=== PATIENT | male | born 1950 | race Caucasian/White ===

== ENCOUNTER 2018-04-23 09:29 | Outpatient (CLI) | payer MEDICARE, BC, SELFPAY ==
[2018-04-23 11:08] LABS: Cholesterol 186 mg/dL (50-200); HDL Cholesterol 57 mg/dL (40-60); LDL CHOLESTEROL 121 mg/dL (<100); Triglyceride 67 mg/dL (30-150)
[2018-04-24 10:10] LABS: PSA, Screening 2.5 ng/ml (0-4.5)
== END 2018-04-23 09:49 ==
PROVIDERS: PCP Emergency Medicine; Visit Provider Emergency Medicine
DX: I10 Essential (primary) hypertension (principal); Z12.5 Encounter for screening for malignant neoplasm of prostate; N40.0 Benign prostatic hyperplasia without lower urinary tract symptoms
CPT/HCPCS: 36415; 80061; 83721; 84153

== ENCOUNTER 2018-07-14 01:49 | Outpatient (CLI) | payer MEDICARE, BC, SELFPAY ==
[2018-07-14 13:32] LABS: Cholesterol 138 mg/dL (50-200); HDL Cholesterol 49 mg/dL (40-60); LDL CHOLESTEROL 81 mg/dL (<100); Triglyceride 50 mg/dL (30-150)
== END 2018-07-14 02:09 ==
PROVIDERS: PCP Emergency Medicine; Visit Provider Emergency Medicine
DX: E78.5 Hyperlipidemia, unspecified (principal)
CPT/HCPCS: 36415; 80061; 83721

== ENCOUNTER 2018-09-01 08:39 | Outpatient (CLI) | payer MEDICARE, BC, SELFPAY ==
[2018-09-01 13:21] LABS: ALT 20 U/L (12-78); AST 16 U/L (15-37); Albumin 3.5 g/dL (3.4-5.0); Alkaline Phosphatase 60 U/L (46-116); Bilirubin, Direct 0.16 mg/dL (0.00-0.20); Bilirubin, Total 0.8 mg/dL (0.2-1.0); C-Reactive Protein 0.19 mg/dL (0.0-0.3); Total Protein 6.8 g/dL (6.4-8.2)
[2018-09-01 13:26] LABS: Cholesterol 197 mg/dL (50-200); HDL Cholesterol 55 mg/dL (40-60); LDL CHOLESTEROL 134 mg/dL (<100); Triglyceride 30 mg/dL (30-150)
[2018-09-02 15:04] LABS: ANA Interpretation Positive (NEGAT); ANA Titer Pattern 1:320 Speckled
== END 2018-09-01 08:59 ==
PROVIDERS: PCP Emergency Medicine; Visit Provider Emergency Medicine
DX: R21 Rash and other nonspecific skin eruption (principal); M25.50 Pain in unspecified joint
CPT/HCPCS: 36415; 80061; 80076; 83721; 86038; 86140

== ENCOUNTER 2019-03-19 01:29 | Outpatient (CLI) | payer MEDICARE, BC, SELFPAY ==
[2019-03-19 13:45] LABS: Calculated LDL 84 mg/dL; Cholesterol 139 mg/dL (50-200); HDL Cholesterol 48 mg/dL (40-60); Triglyceride 37 mg/dL (30-150)
== END 2019-03-19 01:49 ==
PROVIDERS: PCP Emergency Medicine; Visit Provider Emergency Medicine
DX: E78.5 Hyperlipidemia, unspecified (principal)
CPT/HCPCS: 36415; 80061; 83721

== ENCOUNTER 2019-09-25 16:05 | Outpatient (REF) | payer MEDICARE, BC, SELFPAY ==
[2019-09-25 18:11] LABS: Bilirubin Negative (Negative); Blood Negative (Negative); Clarity Cloudy (Clear); Glucose Negative (Negative); Ketones Negative (Negative); Leukocyte Esterase Negative (Negative); Nitrite Negative (Negative); Urobilinogen 0.2 EU/dL (Up TO 0.2)
== END 2019-09-25 16:25 ==
LOC: LBN 16:05
PROVIDERS: PCP Emergency Medicine; Visit Provider Emergency Medicine
DX: R31.9 Hematuria, unspecified (principal)
CPT/HCPCS: 81003

== ENCOUNTER 2020-03-02 00:48 | Outpatient (CLI) | payer MEDICARE, BC, SELFPAY ==
--- NOTE | 2020-03-02 10:45 | DI.RAD_ITS ---
EXAM: XR HAND RT COMPLETE CLINICAL HISTORY: swollen 3rd MPJ M19.041 OSTEOARTHRITIS RT HAND TECHNIQUE: COMPARISON: No exams were available for comparison FINDINGS: Three views were obtained. The cartilaginous joint spaces are fairly well maintained throughout. No significant bony or soft tissue abnormality seen. Bones are normally mineralized. IMPRESSION: Negative examination of the hand.
== END 2020-03-02 01:08 ==
PROVIDERS: PCP Emergency Medicine; Visit Provider Emergency Medicine
DX: M25.541 Pain in joints of right hand (principal); M19.041 Primary osteoarthritis, right hand
CPT/HCPCS: 73130

== ENCOUNTER 2020-03-02 01:15 | Outpatient (CLI) | payer MEDICARE, BC, SELFPAY ==
[2020-03-02 12:21] LABS: Abs Immature Grans 0.01 k/cumm (0.0-0.09); Absolute Basophil Count 0.05 k/cumm (0.0-0.2); Absolute Eosinophil Count 0.29 k/cumm (0.0-0.7); Absolute Lymphocyte Count 1.07 k/cumm (1.2-3.4); Absolute Monocyte Count 0.42 k/cumm (0.11-0.7); Absolute Neutrophil Count 4.21 k/cumm (1.2-6.7); Basophils % 0.8; Eosinophils % 4.8; HCT 45.1 % (40.0-50.0); HGB 15.3 g/dL (13.5-17.5); Immature Grans % 0.2 %; Lymphocytes % 17.7; Mean Corp. HGB Concentration 33.9 g/dL (32.0-36.0); Mean Corpuscular Hemoglobin 31.6 pg (27.0-33.0); Mean Corpuscular Volume 93.2 fL (80-95); Mean Platelet Volume 9.9 fL (8.0-11.0); Monocytes % 6.9; Neutrophils % 69.6; Platelet Count 279 x1000/uL (130-400); RBC 4.84 m/cumm (4.50-6.00); RBC Distribution Width 13.2 % (11.8-14.1); White Blood Cell Count 6.05 k/cumm (4.4-10.8)
[2020-03-02 13:15] LABS: Anion Gap 7.9 mmol/L (3-11); BUN 21 mg/dL (7-18); CO2 27.1 mmol/L (21.0-32.0); CREATININE 0.96 mg/dL (0.70-1.30); Calcium 8.9 mg/dL (8.5-10.1); Calculated LDL 87 mg/dL (<100); Chloride 106 mmol/L (98-107); Cholesterol 150 mg/dL (<200); Glucose 106 mg/dL (74-106); HDL Cholesterol 52 mg/dL (40-60); Potassium 4.3 mmol/L (3.5-5.1); Sodium 141 mmol/L (136-145); Triglyceride 55 mg/dL (<150)
[2020-03-02 13:27] LABS: C-Reactive Protein 0.09 mg/dL (0.0-0.3); Uric Acid 4.8 mg/dL (3.5-7.2)
[2020-03-02 14:07] LABS: ESR 4 mm/hr (1-20)
[2020-03-02 16:30] LABS: Rheumatoid Factor <8.6 IU/mL (<12.0)
[2020-03-03 09:12] LABS: PSA, Screening 3.4 ng/mL (0.0-6.5)
[2020-03-03 14:04] LABS: Lyme Ab w Rflx to Lyme Confirm Negative (Negative)
== END 2020-03-02 01:35 ==
PROVIDERS: PCP Emergency Medicine; Visit Provider Emergency Medicine
DX: I10 Essential (primary) hypertension (principal); E78.5 Hyperlipidemia, unspecified; Z12.5 Encounter for screening for malignant neoplasm of prostate; M19.041 Primary osteoarthritis, right hand
CPT/HCPCS: 36415; 80048; 80061; 84153; 85652; 73130; 84550; 85025; 86140; 86431; 86618

== ENCOUNTER → 2020-04-14 13:12 | Outpatient (BNVA) | payer MEDICARE, BC, SELFPAY | PROVIDERS: PCP Emergency Medicine; Referring Provider Emergency Medicine; Visit Provider Student in an Organized Health Care Education/Training Program | DX: M79.641 Pain in right hand (principal); I10 Essential (primary) hypertension | CPT/HCPCS: 99203 ==

== ENCOUNTER → 2021-01-27 10:12 | Outpatient (BNVA) | payer MEDICARE, BC, SELFPAY | PROVIDERS: PCP Emergency Medicine; Referring Provider Emergency Medicine; Visit Provider Physical Therapy Assistant | DX: Z12.11 Encounter for screening for malignant neoplasm of colon (principal); Z86.010 Personal history of colon polyps ==

== ENCOUNTER 2021-02-10 09:12 | Day surgery (SDC) | payer MEDICARE, BC, SELFPAY ==
[2021-02-10 09:26] VITALS: BP 142/74; PULSE 64; RESP 16; TEMP 36.3; O2SAT 99
[2021-02-10] MEDS: Lactated Ringers 1,000 ML 80 ML IV (09:49)
[2021-02-10 10:11] VITALS: BMI 23.5
--- NOTE | 2021-02-10 10:11 | W.ANESPRE ---
General Info Date of Service Date Performed: 02/10/21 Height: 5 ft 7 in Weight: 68.1 kg Body Mass Index (BMI): 23.5 Surgical Procedure: Operation Date: 02/10/21 09:50 Proposed Procedures Side Surgeon alex Looney, Meds Allergies and Home Medications Allergies Allergy/AdvReac Type Severity Reaction Status Date / Time latex Allergy Intermediate Skin Rash Verified 02/10/21 09:40 simvastatin [From Zocor] AdvReac myalgias Verified 02/10/21 09:40 Home Medication Medication Instructions Recorded aspirin [Ecotrin] 1 tab PO DAILY tab-cap 12/23/12 vitamin E 1 cap PO DAILY 12/23/12 nitroglycerin 0.4 mg sublingual 0.4 mg SL ONCE #20 tab 04/23/18 tablet sildenafil 100 mg tablet 100 mg PO ONCE PRN 04/23/18 lisinopril 5 mg tablet 5 mg PO DAILY #90 tab 10/05/20 metoprolol succinate 50 mg 25 mg PO DAILY #90 tab 10/05/20 tablet,extended release 24 hr rosuvastatin 10 mg tablet 10 mg PO DAILY #90 tab 10/05/20 bisacodyl 5 mg tablet,delayed 5 mg PO ONCE #4 tab 01/27/21 release polyethylene glycol 3350 17 238 g PO ONCE #238 g 01/27/21 gram/dose oral powder Current Visit Medications: Current Medications Generic Name Dose Route Start Last Admin Trade Name Freq PRN Reason Stop Dose Admin Hyoscyamine Sulfate 0.125 mg 02/09/21 14:23 Hyoscyamine 0.125 Mg Sl/Oral/Chew SL DIRECTED PRN Ringer's Solution 1,000 mls @ 80 mls/hr 02/10/21 06:00 02/10/21 09:49 IV 03/11/21 23:59 80 mls/hr INFUSION KEATON Administration IV Miscellaneous Supplies 1 each 02/10/21 06:00 Iv Access IV 03/11/21 23:59 DIRECTED KEATON Ondansetron HCl 4 mg 02/09/21 14:23 Ondansetron 4 Mg/2 Ml Vial IVP Q4H PRN PRN Nausea / Vomiting Sodium Chloride 0 ml 02/10/21 06:00 Normal Saline Flush 10 Ml Syr IV 03/11/21 23:59 PRN PRN Sodium Chloride 0 ml 02/10/21 06:00 Normal Saline 10 Ml Vial IJ 03/11/21 23:59 DIRECTED PRN Sterile Water 0 ml 02/10/21 06:00 Water,Injection,Sterile 10 Ml Vial IJ 03/11/21 23:59 DIRECTED PRN PFSH Active Problems Active Problems: Problem Status Onset Code Chronic pruritic rash in adult L29.8 Other dental procedure status Z98.818 Pain in right hand M79.641 Basal cell carcinoma (BCC) C44.91 Tubular adenoma of colon 05/16/16 D12.6 Tinnitus H93.19 Malignant neoplasm of skin C44.90 Hypertension I10 Hyperlipidemia E78.5 Atherosclerosis of [place] coronary artery I25.10 Medical History Medical History Atherosclerosis of [place] coronary artery Atherosclerosis of [place] coronary artery with angina pectoris Basal cell carcinoma (BCC) History of VT (myocardial infarction) HTN (hypertension) Hyperlipidemia Hyperlipidemia Hypertension Malignant neoplasm of skin basal cell left arm Tinnitus Tubular adenoma of colon (05/16/16) Surgical History Surgical History Colonoscopy - IV Sedation (05/16/16) Colonoscopy - MAC 2004;NEG History of cardiac cath Tooth extraction DENTURES Tobacco Smoking/Tobacco Use Status: Never Passive smoking exposure: No Second hand exposure: No Alcohol Alcohol Intake: current Alcohol intake frequency: a few times a month Alcohol type: beer and wine Substance Use Substance use: Occasionally Substance use type: marijuana Details: smoked marijuana 02/10/21 Vital Signs and Lab Results Vital Signs Most Recent Vital Signs in EMR: Most Recent Vital Signs Temp Pulse Resp BP Pulse Ox 36.3 C L 64 16 142/74 H 99 02/10/21 09:26 02/10/21 09:26 02/10/21 09:26 02/10/21 09:26 02/10/21 09:26 Lab Results Blood Type / Crossmatch: No Data to Display Complete Blood Count: No Data to Display Complete Metabolic Panel: No Data to Display Liver Function Panel: No Data to Display Coagulation Panel: No Data to Display Cardiac Panel: No Data to Display Arterial Blood Gas: No Data to Display Venous Blood Gas: No Data to Display Pancreas Panel: No Data to Display Thyroid Panel: No Data to Display Infectious Disease: No Data to Display Blood Cultures: No Data to Display Toxicology Panel: No Data to Display Imaging and Studies Imaging and Studies Stress Test Summary: 09/2008: Normal Cardiac Catheterization Summary: 1996: VT, Clean Coronaries Anesthesia Assessment and Plan Anesthesia History Personal History: No History of Anesthesia Complications Family History: No Family History of Anesthesia Complications Exercise Tolerance Exercise Tolerance: Metabolic Equivalents>4 Pertinent Negatives Pertinent Negatives: No Symptoms of GERD Cardiac & Pulmonary Exam Cardiac Exam: Normal S1/S2 Heart Sounds Pulmonary Exam: Clear Bilateral Breath Sounds Airway Exam Known Difficult Airway: No Mallampati Class: 2 Mouth Opening: Normal (> 3cm) Thyromental Distance: Greater than 3 cm Neck Range of Motion: Full ROM Neck Circumference: Normal Teeth Condition: Removable Dentures/Plates Upper and Removable Dentures/Plates Lower ASA Classification ASA Score: ASA 3 Emergency Case?: No NPO Status NPO Status: NPO Clears >2 hours, Solids >8 hours Anesthesia Plan Resuscitation Status: Full Code Anesthesia Technique: General Anesthesia Airway Planned: Natural Airway Monitors Used: Standard Monitors
--- NOTE | 2021-02-10 10:32 | W.COLOREPORT ---
Date of service: 02/10/21 Time of Service: 10:32 Colonoscopy Report Date of procedure: 02/10/21 Pre-op diagnosis general: A. polyps Post-op diagnosis procedure note: other (normal) Surgeon: Susi Looney Anesthesia Type: General:No Airway Disposition: same day Prep: Miralax/Dulcolax Retraction Time: 10 Procedure Description: After informed consent was obtained the patient was taken to the procedure room and placed in a left decubitous position. Monitors were applied and a time out was done. The patients name, date of , procedure, allergies to medications and metal in their body was reviewed. The patient was then sedated. Once sedated and comfortable a rectal exam was done. External exam was normal. Internal exam revealed a normal sphincter tone and no palpable masses. The scope was then introduced and retrofelexed. No internal hemorrhoids were identified. The scope was then advanced to the cecum w/out difficulty. The TI and appendiceal orifice were identified. The prep was adequate. The scope was then slowly retracted over 10 minutes back into the rectum. There are no polyps, AVMs, or diverticula apparent today. The mucosa appears pink and healthy. The scope was removed and the patient was woken up and taken back to Same day surgery in stable condition. The patient tolerated the procedure well and there were no immediate complications. Follow up: The patient does not require any further screening colonoscopies unless, they develop changes in bowel habits or other new gastrointestinal complaints.
--- NOTE | 2021-02-10 10:33 | PDOC.DSDIS_ITS ---
Discharge Plan Disposition Patient Disposition: HOME Condition: Good Discharge Details Reason For Visit: colon scope Attending Provider: Susi Looney Primary Care Provider: Tj Price Home Meds and New Rx's Prescriptions: Continued lisinopril 5 mg tablet 5 mg PO DAILY Qty: 90 RF: 4 metoprolol succinate 50 mg tablet extended release 24 hr 25 mg PO DAILY Qty: 90 RF: 3 rosuvastatin [Crestor] 10 mg tablet 10 mg PO DAILY Qty: 90 RF: 4 nitroglycerin 0.4 mg tablet, sublingual 0.4 mg SL ONCE Qty: 20 RF: 0 aspirin [Ecotrin Low Strength] 81 MG tablet,delayed release (DR/EC) 1 tab PO DAILY RF: 0 vitamin E 400 UNIT capsule 1 cap PO DAILY RF: 0 sildenafil [Viagra] 100 mg tablet 100 mg PO ONCE PRNRF: 0 Discontinued polyethylene glycol 3350 17 gram/dose powder 238 g PO ONCE Qty: 238 RF: 0 bisacodyl [Dulcolax (bisacodyl)] 5 mg tablet,delayed release (DR/EC) 5 mg PO ONCE Qty: 4 RF: 0 Discharge Instructions Additional Instructions: DSU Colonoscopy Post- Op Instructions Instructions for Everyone who is given Anesthesia: For your safety, please do the following for the next twenty-four (24) hours: *Do Not operate a motor vehicle (car, truck, motorcycle, etc.) *Do Not drink alcoholic beverages or use any recreational drugs for the first 24 hours or while taking pain medications. The medications in your body may have a reaction that can be dangerous. *Do Not make any important decisions or sign any important papers. Findings:Normal Follow up:Does not require any further colonscopy's, unless you note: Unexplained weight loss, change in your bowel habits that persist for more than 2 weeks, or persistent rectal bleeding. 1. No lifting over 20 pounds or strenuous activity for the first 24 hours after your procedure. After 24 hours there are no restrictions on your activity but you may feel fatigued for a few days. 2. After you arrive home you may have a light meal and return to your normal diet as you can tolerate it without feeling sick to your stomach. 3. You may have a bloated, gaseous feeling in your belly (abdomen) after a colonoscopy. Passing gas and belching will help. Walking or lying down on your left side with your knees flexed may relieve the discomfort. Call the office at [phone] (Office) or [phone] (Hospital) right away if you notice any of the following: a.Vomiting of blood or ?coffee ground stools?. b.Rectal bleeding 1Tbsp, blood clots or continuous bleeding. c.Severe belly (abdominal) pain. d.A hard distended belly (abdomen) and an inability to pass gas. 4. Please don?t expect to have a normal BM (bowel movement) for 2-3 days after your procedure. 5. If there are questions regarding the findings of your procedure, please contact your doctor 6. If you are unable to contact your doctor with a problem, contact the hospital at [phone]. 7. Continue all your regular medications unless directed otherwise. I understand the above instructions and have no questions. Signature of Patient or Adult Escort Name of Responsible Adult Escort Signature of Nurse Date/Time Activity:: see above Diet:: see above Discharge Orders Discharge Orders: Discharge Order (Routine); Ordered 02/09/21 Ordered By: Susi Looney DS: Diagnosis Discharge Diagnosis (1) Adenomatous colon polyp: Status: Acute
[2021-02-10 11:05] VITALS: BP 119/71; PULSE 70; RESP 15; TEMP 36.6; O2SAT 97
[2021-02-10 11:35] VITALS: BP 137/71; PULSE 59; RESP 16; TEMP 36.1; O2SAT 98
--- NOTE | 2021-02-10 11:40 | W.ANESPOSTOP ---
Postoperative Evaluation Date, Time and Location Date Performed: 02/10/21 Time Performed: 11:40 Patient Location: Day Surgery Unit Vital Signs Most Recent Imported Vital Signs: Most Recent Vital Signs Temp Pulse Resp BP Pulse Ox 36.6 C 70 15 119/71 97 02/10/21 11:05 02/10/21 11:05 02/10/21 11:05 02/10/21 11:05 02/10/21 11:05 Pain Score Most Recent Pain Score: Most Recent Pain Score Pain Level 0 02/10/21 11:05 Assessment Mental Status: Awake (Alert & Oriented to Patient Baseline) Airway and Respiratory Function: Patent airway with normal (patient baseline) respiratory exam Cardiovascular Function: Hemodynamically Stable Hydration Status: Adequately Hydrated Nausea & Vomiting: No Nausea or Vomiting Pain: Pt. Denies Any Pain Peripheral Nerve Block: Patient did not receive a nerve block
== END 2021-02-10 09:13 | disposition home or self-care (01) ==
PROVIDERS: PCP Emergency Medicine; Visit Provider Surgery
PROC: 0DJD8ZZ Inspection of Lower Intestinal Tract, Via Natural or Artificial Opening Endoscopic (ICD-10-PCS; CPT 45378; principal; 2021-02-10 09:45)
DX: Z12.11 Encounter for screening for malignant neoplasm of colon (principal); Z86.010 Personal history of colon polyps; I25.10 Atherosclerotic heart disease of native coronary artery without angina pectoris; I10 Essential (primary) hypertension
CPT/HCPCS: G0105

== ENCOUNTER 2021-10-20 03:57 | Outpatient (CLI) | payer MEDICARE, SELFPAY ==
[2021-10-20 11:27] LABS: Calculated LDL 61 mg/dL (<100); Cholesterol 122 mg/dL (<200); HDL Cholesterol 54 mg/dL (40-60); Triglyceride 37 mg/dL (<150)
== END 2021-10-20 03:58 | disposition home or self-care (01) ==
LOC: LBO 03:57
PROVIDERS: PCP Family Medicine; Visit Provider Emergency Medicine
DX: N40.0 Benign prostatic hyperplasia without lower urinary tract symptoms (principal); I25.10 Atherosclerotic heart disease of native coronary artery without angina pectoris
CPT/HCPCS: 36415; 80061; 84153

== ENCOUNTER 2022-04-24 08:09 | Outpatient (CLI) | payer MEDICARE, SELFPAY ==
[2022-04-24 14:27] LABS: Calculated LDL 55 mg/dL (<100); Cholesterol 112 mg/dL (<200); HDL Cholesterol 50 mg/dL (40-60); Triglyceride 38 mg/dL (<150)
== END 2022-04-24 08:10 | disposition home or self-care (01) ==
LOC: LOS 08:09
PROVIDERS: Visit Provider Nurse Practitioner Family
DX: I25.10 Atherosclerotic heart disease of native coronary artery without angina pectoris (principal)
CPT/HCPCS: 36415; 80061

== ENCOUNTER → 2022-10-19 10:34 | Outpatient (BNVA) | payer MEDICARE, SELFPAY | PROVIDERS: PCP Nurse Practitioner Family; Referring Provider Family Medicine; Visit Provider Urology | DX: N42.9 Disorder of prostate, unspecified (principal); N40.1 Benign prostatic hyperplasia with lower urinary tract symptoms; R39.89 Other symptoms and signs involving the genitourinary system; R97.20 Elevated prostate specific antigen [PSA] | CPT/HCPCS: 51798; 99213 ==

== ENCOUNTER 2022-10-24 02:43 | Outpatient (CLI) | payer MEDICARE, SELFPAY ==
[2022-10-24 12:54] LABS: ALT 26 U/L (16-63); AST 19 U/L (15-37); Albumin 3.9 g/dL (3.4-5.0); Alkaline Phosphatase 71 U/L (46-116); BUN 17 mg/dL (7-18); Bilirubin, Total 0.7 mg/dL (0.2-1.0); CREATININE 0.9 mg/dL (0.70-1.30); Calcium 9.1 mg/dL (8.5-10.1); Calculated LDL 55 mg/dL (<100); Chloride 105 mmol/L (98-107); Cholesterol 120 mg/dL (<200); Estimated GFR 89.62 (mL/min/1.73m2); Glucose 89 mg/dL (74-106); HDL Cholesterol 59 mg/dL (40-60); Potassium 4.1 mmol/L (3.5-5.1); Sodium 142 mmol/L (136-145); Triglyceride 34 mg/dL (<150)
[2022-10-24 13:03] LABS: Anion Gap 6.5 mmol/L (3-11); CO2 30.5 mmol/L (21.0-32.0)
[2022-10-26 09:38] LABS: Lipoprotein (a) 154 nmol/L (<75)
== END 2022-10-24 02:44 | disposition home or self-care (01) ==
LOC: LOS 02:43
PROVIDERS: PCP Nurse Practitioner Family; Visit Provider Nurse Practitioner Family
DX: E78.01 Familial hypercholesterolemia; E78.5 Hyperlipidemia, unspecified; Z51.81 Encounter for therapeutic drug level monitoring; N40.1 Benign prostatic hyperplasia with lower urinary tract symptoms
CPT/HCPCS: 36415; 80053; 80061; 83695; 84153

== ENCOUNTER 2022-11-01 00:59 | Outpatient (CLI) | payer MEDICARE, SELFPAY ==
--- NOTE | 2022-11-01 07:15 | DI.US_ITS ---
Exam(s) US SOFT TISSUE HEAD OR NECK EXAM: US SOFT TISSUE HEAD OR NECK CLINICAL HISTORY: lower neck mass,r22.1. TECHNIQUE: Ultrasound was performed using standard protocol. COMPARISON: No exams were available for comparison FINDINGS: Sonographic assessment utilizing grayscale and color Doppler imaging was performed and targeted to th e area of clinical concern. The palpable abnormality corresponds to a circumscribed ovoid hypoechoic nodule in the subcutaneous f at the at the region of the sternum. There is no blood flow. This may represent a sebaceous cyst. It measures 12 x 6 x 11 millimeters. IMPRESSION: Benign-appearing subcutaneous lesion corresponding to palpable abnormality. DATA REPOSITORY:
== END 2022-11-01 01:19 ==
LOC: DI 01:00
PROVIDERS: PCP Nurse Practitioner Family; Visit Provider Nurse Practitioner Family
DX: R22.1 Localized swelling, mass and lump, neck (principal); L72.3 Sebaceous cyst
CPT/HCPCS: 76536

== ENCOUNTER → 2022-11-12 08:52 | Outpatient (BNVA) | payer MEDICARE, SELFPAY | PROVIDERS: PCP Nurse Practitioner Family; Referring Provider Nurse Practitioner Family; Visit Provider Surgery | DX: L72.3 Sebaceous cyst (principal) | CPT/HCPCS: 11402; 99202 ==

== ENCOUNTER → 2022-12-10 13:25 | Outpatient (BNVA) | payer MEDICARE, SELFPAY | PROVIDERS: PCP Nurse Practitioner Family; Referring Provider Nurse Practitioner Family; Visit Provider Urology | DX: R97.20 Elevated prostate specific antigen [PSA] (principal); N42.9 Disorder of prostate, unspecified | CPT/HCPCS: 99215 ==

== ENCOUNTER → 2023-01-03 10:42 | Outpatient (BNVA) | payer MEDICARE, SELFPAY | PROVIDERS: PCP Nurse Practitioner Family; Referring Provider Nurse Practitioner Family; Visit Provider Urology | DX: N42.9 Disorder of prostate, unspecified (principal) | CPT/HCPCS: NC OV ==

== ENCOUNTER → 2023-01-15 08:47 | Outpatient (BNVA) | payer MEDICARE, SELFPAY | PROVIDERS: PCP Nurse Practitioner Family; Referring Provider Nurse Practitioner Family; Visit Provider Urology | DX: C61 Malignant neoplasm of prostate (principal) | CPT/HCPCS: 76872 ==

== ENCOUNTER → 2023-01-25 10:43 | Outpatient (BNVA) | payer MEDICARE, SELFPAY | PROVIDERS: PCP Nurse Practitioner Family; Referring Provider Nurse Practitioner Family; Visit Provider Urology | DX: C61 Malignant neoplasm of prostate (principal) | CPT/HCPCS: 99215 ==

== ENCOUNTER 2023-01-30 00:46 | Outpatient (CLI) | payer MEDICARE, SELFPAY ==
--- NOTE | 2023-01-30 08:00 | DI.NM_ITS ---
Exam(s) NM BONE SCAN WHOLE BODY GRP EXAM: NM BONE SCAN WHOLE BODY GRP CLINICAL HISTORY: ? mets, prostate ca,c61. TECHNIQUE: Injected Dose: 25 mCi Tc-99m MDP Delayed Images: 2-3 hours. COMPARISON: None FINDINGS: There is no abnormal uptake in the skeleton which would suggest metastatic disease. Tiny focus of in creased uptake is noted on the right side of the lower thoracic spine at the costovertebral junction of approximately T9 or T10, most probably degenerative. Small focus of increased uptake seen in the left hand 1 of the metacarpophalangeal joints is noted. Probably degenerative. No other skeletal uptake evident. IMPRESSION: No evidence of osseous metastatic disease. DATA REPOSITORY:
== END 2023-01-30 01:06 ==
LOC: DI 00:46
PROVIDERS: PCP Nurse Practitioner Family; Visit Provider Urology
DX: C61 Malignant neoplasm of prostate (principal)
CPT/HCPCS: 78306

== ENCOUNTER 2023-02-11 01:56 | Outpatient (CLI) | payer MEDICARE, SELFPAY ==
--- NOTE | 2023-02-11 08:00 | DI.CT_ITS ---
Exam(s) CT ABDOMEN PELVIS W EXAM: CT ABDOMEN PELVIS W CLINICAL HISTORY: ? METS,PROSTATE CA,C61 TECHNIQUE: Imaging Protocol: Axial computed tomography images with coronal and sagittal reformatted images were created and reviewed CONTRAST MATERIAL: Intravenous: Omnipaque 350 Contrast volume:100 mL Oral: Yes COMPARISON: No exams were available for comparison FINDINGS: ABDOMEN: Lung Bases: There is mild dependent atelectasis in the lung bases. No pulmonary nodules are seen in the lung bases. Liver: Normal density. There are 2 hypodensities seen in the liver. They are too small for further c haracterization but likely reflect small cysts. No suspicious hepatic lesions are seen. Portal, Superior Mesenteric, and Splenic Veins: Unremarkable. Gallbladder and Biliary Tract: Gallstones are present. No biliary ductal dilatation. Pancreas: Normal density, no abnormal calcifications or inflammatory process. Spleen: Normal. Adrenals: No masses seen. Kidneys: Normal size, contour and axis. No radiodense stones or obstructive uropathy. There is a 0.8 cm round hypodensity in the right kidney which likely reflects a small cyst. No follow-up is recomme nded. Abdominal Aorta: Abdominal portion non-dilated. Atherosclerosis. Bowel: No obstruction or bowel wall thickening. Appendix is unremarkable. There is a moderate amount of stool in the colon. Peritoneal Cavity: No ascites, collection or mesenteric inflammatory response. No free air. Lymph Nodes: Within normal limits. Bones: Within normal limits for the patient's age. No sclerotic lesions are seen. Soft Tissues: There is a small fat containing umbilical hernia. PELVIS: Bladder: Symmetric distention, no gross wall thickening. Reproductive Organs: The prostate gland is enlarged and impinges upon the base of the urinary bladder . Lymph Nodes: Within normal limits. Bones: Within normal limits for the patient's age. IMPRESSION: 1. Enlarged prostate gland impinging on the base of the urinary bladder. The prostate gland is heter ogeneous with a nodular extension at the base of the bladder. 2. No evidence of abdominal or pelvic metastatic disease. RADIATION DOSE DELIVERED: 981.89mGy.cm Total DLP DATA REPOSITORY: All CT scans at this facility are submitted to the National Radiology Data Registry (NRDR) Dose Index Registry (DIR) with the [employer] ([employer]). RADIATION OPTIMIZATION: All CT scans at this facility use at least one of these dose optimization te chniques: automated exposure control; mA and/or kV adjustment per patient size (includes targeted exa ms where dose is matched to clinical indication); or iterative reconstruction.
[2023-02-11] MEDS: Barium Sulfate 2% W/V-Berry Smoothie 450 ML BTL PO ×2 (09:06→09:07)
[2023-02-11 10:06] LABS: CREATININE 0.9 mg/dL (0.70-1.30); Estimated GFR 89.62 (mL/min/1.73m2)
== END 2023-02-11 02:16 ==
LOC: DI 01:56
PROVIDERS: PCP Nurse Practitioner Family; Visit Provider Urology
DX: C61 Malignant neoplasm of prostate (principal)
CPT/HCPCS: 74177; 82565

== ENCOUNTER → 2023-02-15 10:49 | Outpatient (BNVA) | payer MEDICARE, SELFPAY | PROVIDERS: PCP Nurse Practitioner Family; Referring Provider Nurse Practitioner Family; Visit Provider Urology | DX: C61 Malignant neoplasm of prostate (principal) | CPT/HCPCS: 99214 ==

== ENCOUNTER 2023-03-07 14:58 | Outpatient (CLI) | payer MEDICARE, SELFPAY ==
[2023-03-07 14:11] LABS: Abs Immature Grans 0.02 10^3/uL (0.0-0.06); Absolute Basophil Count 0.07 10^3/uL (0.0-0.2); Absolute Eosinophil Count 0.23 10^3/uL (0.0-0.7); Absolute Lymphocyte Count 1.03 10^3/uL (1.2-3.4); Absolute Monocyte Count 0.56 10^3/uL (0.1-0.8); Absolute Neutrophil Count 5.58 10^3/uL (1.2-6.7); Basophils % 0.9; Eosinophils % 3.1; HCT 46.6 % (40.0-50.0); HGB 15.5 g/dL (13.5-17.5); Immature Grans % 0.3; Lymphocytes % 13.8; MCH 31.5 pg (27.0-33.0); MCHC 33.3 % (32.0-36.0); MCV 95 fL (80-95); MPV 9.3 fL (8.0-11.0); Monocytes % 7.5; Neutrophils % 74.4; Platelet Count 280 10^3/uL (130-400); RBC 4.92 10^6/uL (4.36-5.78); RDW 12.6 % (11.8-14.1); RDW-SD 43.8 fL; WBC 7.49 10^3/uL (4.4-10.8)
[2023-03-07 14:25] LABS: ALT 35 U/L (16-63); AST 20 U/L (15-37); Albumin 4.2 g/dL (3.4-5.0); Alkaline Phosphatase 71 U/L (46-116); Anion Gap 6.5 mmol/L (3-11); BUN 19 mg/dL (7-18); Bilirubin, Total 0.6 mg/dL (0.2-1.0); CO2 28.5 mmol/L (21.0-32.0); CREATININE 0.9 mg/dL (0.70-1.30); Calcium 8.9 mg/dL (8.5-10.1); Chloride 106 mmol/L (98-107); Estimated GFR 89.62 (mL/min/1.73m2); Glucose 80 mg/dL (74-106); Potassium 4.2 mmol/L (3.5-5.1); Sodium 141 mmol/L (136-145); Total Protein 7.5 g/dL (6.4-8.2)
[2023-03-08 19:32] LABS: PSA, Ultrasensitive 15.4 ng/mL (<= 6.5)
[2023-03-13 07:20] LABS: Testosterone, Total 427 ng/dL (240-950)
== END 2023-03-07 14:59 | disposition home or self-care (01) ==
LOC: LBO 15:08
PROVIDERS: PCP Nurse Practitioner Family; Visit Provider Radiology Radiation Oncology
DX: C61 Malignant neoplasm of prostate (principal)
CPT/HCPCS: 36415; 80053; 84153; 84403; 85025

== ENCOUNTER 2023-05-03 03:05 | Outpatient (CLI) | payer MEDICARE, SELFPAY ==
[2023-05-03 11:37] LABS: Abs Immature Grans 0.06 10^3/uL (0.0-0.06); Absolute Basophil Count 0.08 10^3/uL (0.0-0.2); Absolute Eosinophil Count 0.47 10^3/uL (0.0-0.7); Absolute Monocyte Count 0.45 10^3/uL (0.1-0.8); Absolute Neutrophil Count 4.28 10^3/uL (1.2-6.7); Basophils % 1.3; Eosinophils % 7.4; HCT 43.2 % (40.0-50.0); HGB 14.5 g/dL (13.5-17.5); Immature Grans % 0.9; Lymphocytes % 15.8; MCH 31.1 pg (27.0-33.0); MCHC 33.6 % (32.0-36.0); MCV 93 fL (80-95); MPV 10.4 fL (8.0-11.0); Monocytes % 7.1; Neutrophils % 67.5; Platelet Count 265 10^3/uL (130-400); RBC 4.66 10^6/uL (4.36-5.78); RDW 12.4 % (11.8-14.1); RDW-SD 42.3 fL; WBC 6.34 10^3/uL (4.4-10.8)
[2023-05-03 12:04] LABS: ALT 60 U/L (16-63); AST 42 U/L (15-37); Albumin 3.7 g/dL (3.4-5.0); Alkaline Phosphatase 77 U/L (46-116); Anion Gap 3.8 mmol/L (3-11); BUN 19 mg/dL (7-18); Bilirubin, Total 0.3 mg/dL (0.2-1.0); CO2 30.2 mmol/L (21.0-32.0); CREATININE 1.1 mg/dL (0.70-1.30); Calcium 9.5 mg/dL (8.5-10.1); Chloride 105 mmol/L (98-107); Estimated GFR 70.44 (mL/min/1.73m2); Glucose 97 mg/dL (74-106); Potassium 4.7 mmol/L (3.5-5.1); Sodium 139 mmol/L (136-145); TSH (W/Ref FT4) 3.15 uIU/mL (0.36-3.74); Total Protein 6.8 g/dL (6.4-8.2)
== END 2023-05-03 03:06 | disposition home or self-care (01) ==
PROVIDERS: Internal Medicine Medical Oncology; PCP Nurse Practitioner Family; Visit Provider Internal Medicine
DX: C61 Malignant neoplasm of prostate (principal); Z79.899 Other long term (current) drug therapy
CPT/HCPCS: 36415; 80053; 84443; 85025

== ENCOUNTER 2023-07-08 04:39 | Outpatient (CLI) | payer MEDICARE, SELFPAY ==
[2023-07-08 14:52] LABS: Abs Immature Grans 0.06 10^3/uL (0.0-0.06); Absolute Basophil Count 0.03 10^3/uL (0.0-0.2); Absolute Eosinophil Count 0.63 10^3/uL (0.0-0.7); Absolute Lymphocyte Count 0.26 10^3/uL (1.2-3.4); Absolute Monocyte Count 0.46 10^3/uL (0.1-0.8); Absolute Neutrophil Count 3.74 10^3/uL (1.2-6.7); Basophils % 0.6; Eosinophils % 12.2; HGB 13.6 g/dL (13.5-17.5); Immature Grans % 1.2; MCH 32.5 pg (27.0-33.0); MCV 96 fL (80-95); MPV 9.5 fL (8.0-11.0); Monocytes % 8.9; Neutrophils % 72.1; Platelet Count 201 10^3/uL (130-400); RBC 4.19 10^6/uL (4.36-5.78); RDW 14.4 % (11.8-14.1); RDW-SD 49.7 fL; WBC 5.18 10^3/uL (4.4-10.8)
[2023-07-08 15:50] LABS: ALT 41 U/L (16-63); AST 23 U/L (15-37); Albumin 3.5 g/dL (3.4-5.0); Alkaline Phosphatase 63 U/L (46-116); Anion Gap 3.8 mmol/L (3-11); BUN 21 mg/dL (7-18); Bilirubin, Total 0.2 mg/dL (0.2-1.0); CO2 29.2 mmol/L (21.0-32.0); CREATININE 1.1 mg/dL (0.70-1.30); Calcium 8.9 mg/dL (8.5-10.1); Chloride 106 mmol/L (98-107); Estimated GFR 70.44 (mL/min/1.73m2); Glucose 106 mg/dL (74-106); Potassium 4.2 mmol/L (3.5-5.1); Sodium 139 mmol/L (136-145); TSH (W/Ref FT4) 1.88 uIU/mL (0.36-3.74)
[2023-07-12 15:35] LABS: PSA, Ultrasensitive 0.04 ng/mL (<= 6.5)
[2023-07-14 18:13] LABS: Testosterone, Total 12 ng/dL (240-950)
== END 2023-07-08 04:40 | disposition home or self-care (01) ==
LOC: LBO 04:40
PROVIDERS: PCP Nurse Practitioner Family; Visit Provider Radiology Radiation Oncology
DX: C61 Malignant neoplasm of prostate (principal)
CPT/HCPCS: 36415; 80053; 84153; 84403; 84443; 85025

== ENCOUNTER 2023-08-16 11:02 | Outpatient (CLI) | payer MEDICARE, SELFPAY ==
[2023-08-16 11:25] LABS: Abs Immature Grans 0.03 10^3/uL (0.0-0.06); Absolute Basophil Count 0.07 10^3/uL (0.0-0.2); Absolute Eosinophil Count 0.25 10^3/uL (0.0-0.7); Absolute Lymphocyte Count 0.22 10^3/uL (1.2-3.4); Absolute Neutrophil Count 3.67 10^3/uL (1.2-6.7); Basophils % 1.5; Eosinophils % 5.4; HCT 42.5 % (40.0-50.0); HGB 14.3 g/dL (13.5-17.5); Immature Grans % 0.6; Lymphocytes % 4.7; MCH 32.9 pg (27.0-33.0); MCHC 33.6 % (32.0-36.0); MCV 98 fL (80-95); MPV 9.7 fL (8.0-11.0); Monocytes % 8.6; Neutrophils % 79.2; Platelet Count 238 10^3/uL (130-400); RBC 4.34 10^6/uL (4.36-5.78); RDW 13.2 % (11.8-14.1); RDW-SD 47.9 fL; WBC 4.64 10^3/uL (4.4-10.8)
[2023-08-16 11:49] LABS: ALT 47 U/L (16-63); AST 28 U/L (15-37); Albumin 3.8 g/dL (3.4-5.0); Alkaline Phosphatase 65 U/L (46-116); Anion Gap 7.1 mmol/L (3-11); BUN 18 mg/dL (7-18); Bilirubin, Total 0.3 mg/dL (0.2-1.0); CO2 28.9 mmol/L (21.0-32.0); Chloride 104 mmol/L (98-107); Estimated GFR 78.49 (mL/min/1.73m2); Glucose 95 mg/dL (74-106); Potassium 4.1 mmol/L (3.5-5.1); Sodium 140 mmol/L (136-145); TSH (W/Ref FT4) 3.43 uIU/mL (0.36-3.74); Total Protein 6.7 g/dL (6.4-8.2)
[2023-08-20 10:48] LABS: PSA, Ultrasensitive 0.02 ng/mL (<= 6.5)
[2023-08-21 02:34] LABS: Testosterone, Total 9.5 ng/dL (240-950)
== END 2023-08-16 11:03 | disposition home or self-care (01) ==
LOC: LBO 11:02
PROVIDERS: PCP Nurse Practitioner Family; Visit Provider Internal Medicine
DX: C61 Malignant neoplasm of prostate (principal); Z79.899 Other long term (current) drug therapy; I10 Essential (primary) hypertension
CPT/HCPCS: 36415; 80053; 84153; 84403; 84443; 85025

== ENCOUNTER 2023-10-04 14:15 | Outpatient (CLI) | payer MEDICARE, SELFPAY ==
[2023-10-04 14:26] LABS: Abs Immature Grans 0.07 10^3/uL (0.0-0.06); Absolute Basophil Count 0.04 10^3/uL (0.0-0.2); Absolute Eosinophil Count 0.27 10^3/uL (0.0-0.7); Absolute Lymphocyte Count 0.28 10^3/uL (1.2-3.4); Absolute Monocyte Count 0.46 10^3/uL (0.1-0.8); Absolute Neutrophil Count 3.52 10^3/uL (1.2-6.7); Basophils % 0.9; Eosinophils % 5.8; HCT 43.1 % (40.0-50.0); HGB 14.6 g/dL (13.5-17.5); Immature Grans % 1.5; MCH 33.3 pg (27.0-33.0); MCHC 33.9 % (32.0-36.0); MCV 98 fL (80-95); MPV 10.2 fL (8.0-11.0); Monocytes % 9.9; Neutrophils % 75.9; Platelet Count 220 10^3/uL (130-400); RBC 4.39 10^6/uL (4.36-5.78); RDW 12.3 % (11.8-14.1); RDW-SD 45.1 fL; WBC 4.64 10^3/uL (4.4-10.8)
[2023-10-04 16:08] LABS: ALT 40 U/L (16-63); AST 24 U/L (15-37); Albumin 3.9 g/dL (3.4-5.0); Alkaline Phosphatase 68 U/L (46-116); Anion Gap 6.9 mmol/L (3-11); BUN 22 mg/dL (7-18); Bilirubin, Total 0.3 mg/dL (0.2-1.0); CO2 30.1 mmol/L (21.0-32.0); Chloride 105 mmol/L (98-107); Estimated GFR 78.49 (mL/min/1.73m2); Glucose 94 mg/dL (74-106); Potassium 4.4 mmol/L (3.5-5.1); Sodium 142 mmol/L (136-145); TSH (W/Ref FT4) 2.39 uIU/mL (0.36-3.74); Total Protein 6.7 g/dL (6.4-8.2)
[2023-10-07 11:01] LABS: PSA, Ultrasensitive 0.01 ng/mL (<= 6.5)
[2023-10-08 12:32] LABS: Testosterone, Total 8.7 ng/dL (240-950)
== END 2023-10-04 14:16 | disposition home or self-care (01) ==
LOC: LBO 14:16
PROVIDERS: PCP Nurse Practitioner Family; Visit Provider Internal Medicine
DX: C61 Malignant neoplasm of prostate (principal)
CPT/HCPCS: 36415; 80053; 84153; 84403; 84443; 85025

== ENCOUNTER → 2023-10-08 15:33 | Outpatient (BNVA) | payer MEDICARE, SELFPAY | PROVIDERS: PCP Nurse Practitioner Family; Visit Provider Urology | DX: C61 Malignant neoplasm of prostate (principal); R39.89 Other symptoms and signs involving the genitourinary system | CPT/HCPCS: 99213 ==

== ENCOUNTER 2023-12-24 09:08 | Outpatient (CLI) | payer MEDICARE, SELFPAY ==
[2023-12-24 10:08] LABS: ALT 28 U/L (16-63); AST 20 U/L (15-37); Alkaline Phosphatase 68 U/L (46-116); Anion Gap 7.6 mmol/L (3-11); BUN 17 mg/dL (7-18); Bilirubin, Total 0.5 mg/dL (0.2-1.0); CO2 31.4 mmol/L (21.0-32.0); CREATININE 1.1 mg/dL (0.70-1.30); Calcium 8.9 mg/dL (8.5-10.1); Calculated LDL 90 mg/dL (<100); Chloride 105 mmol/L (98-107); Cholesterol 163 mg/dL (<200); Estimated GFR 70.01 (mL/min/1.73m2); Glucose 87 mg/dL (74-106); HDL Cholesterol 63 mg/dL (40-60); Potassium 4.3 mmol/L (3.5-5.1); Sodium 144 mmol/L (136-145); Total Protein 6.5 g/dL (6.4-8.2); Triglyceride 54 mg/dL (<150)
[2023-12-26 14:52] LABS: Lipoprotein (a) 294 nmol/L (<75)
== END 2023-12-24 09:09 | disposition home or self-care (01) ==
LOC: LBO 09:08
PROVIDERS: PCP Nurse Practitioner Family; Visit Provider Nurse Practitioner Family
DX: I25.10 Atherosclerotic heart disease of native coronary artery without angina pectoris (principal); E78.01 Familial hypercholesterolemia; E78.5 Hyperlipidemia, unspecified
CPT/HCPCS: 36415; 80053; 80061; 83695

== ENCOUNTER 2024-01-01 13:40 | Outpatient (CLI) | payer MEDICARE, SELFPAY ==
[2024-01-01 13:49] LABS: Abs Immature Grans 0.05 10^3/uL (0.0-0.06); Absolute Basophil Count 0.05 10^3/uL (0.0-0.2); Absolute Eosinophil Count 0.27 10^3/uL (0.0-0.7); Absolute Lymphocyte Count 0.34 10^3/uL (1.2-3.4); Absolute Monocyte Count 0.48 10^3/uL (0.1-0.8); Absolute Neutrophil Count 4.68 10^3/uL (1.2-6.7); Basophils % 0.9 %; Eosinophils % 4.6 %; HCT 41.6 % (40.0-50.0); HGB 13.9 g/dL (13.5-17.5); Immature Grans % 0.9 %; Lymphocytes % 5.8 %; MCH 32.2 pg (27.0-33.0); MCHC 33.4 % (32.0-36.0); MCV 96 fL (80-95); MPV 9.8 fL (8.0-11.0); Monocytes % 8.2 %; Neutrophils % 79.6 %; Platelet Count 224 10^3/uL (130-400); RBC 4.32 10^6/uL (4.36-5.78); RDW 12.6 % (11.8-14.1); RDW-SD 45.1 fL; WBC 5.87 10^3/uL (4.4-10.8)
[2024-01-01 14:12] LABS: ALT 26 U/L (16-63); AST 16 U/L (15-37); Albumin 3.8 g/dL (3.4-5.0); Alkaline Phosphatase 67 U/L (46-116); Anion Gap 8.3 mmol/L (3-11); BUN 21 mg/dL (7-18); Bilirubin, Total 0.3 mg/dL (0.2-1.0); CO2 27.7 mmol/L (21.0-32.0); CREATININE 1.1 mg/dL (0.70-1.30); Calcium 8.8 mg/dL (8.5-10.1); Chloride 106 mmol/L (98-107); Estimated GFR 70.01 (mL/min/1.73m2); Glucose 93 mg/dL (74-106); Potassium 4.7 mmol/L (3.5-5.1); Sodium 142 mmol/L (136-145); TSH (W/Ref FT4) 2.89 uIU/mL (0.36-3.74); Total Protein 6.4 g/dL (6.4-8.2)
[2024-01-03 10:27] LABS: PSA, Ultrasensitive <0.01 ng/mL (<= 6.5)
[2024-01-09 00:33] LABS: Testosterone, Total 7.8 ng/dL (240-950)
== END 2024-01-01 13:41 | disposition home or self-care (01) ==
LOC: LBO 13:41
PROVIDERS: PCP Nurse Practitioner Family; Visit Provider Internal Medicine
DX: C61 Malignant neoplasm of prostate (principal)
CPT/HCPCS: 36415; 80053; 84153; 84403; 84443; 85025

== ENCOUNTER 2024-03-24 15:46 | Outpatient (CLI) | payer MEDICARE, SELFPAY ==
[2024-03-24 13:24] LABS: Abs Immature Grans 0.05 10^3/uL (0.0-0.06); Absolute Basophil Count 0.05 10^3/uL (0.0-0.2); Absolute Eosinophil Count 0.37 10^3/uL (0.0-0.7); Absolute Lymphocyte Count 0.32 10^3/uL (1.2-3.4); Absolute Monocyte Count 0.36 10^3/uL (0.1-0.8); Absolute Neutrophil Count 3.53 10^3/uL (1.2-6.7); Basophils % 1.1 %; Eosinophils % 7.9 %; HCT 40.9 % (40.0-50.0); Immature Grans % 1.1 %; Lymphocytes % 6.8 %; MCH 32.4 pg (27.0-33.0); MCHC 34.2 % (32.0-36.0); MCV 95 fL (80-95); Monocytes % 7.7 %; Neutrophils % 75.4 %; Platelet Count 205 10^3/uL (130-400); RBC 4.32 10^6/uL (4.36-5.78); RDW 12.5 % (11.8-14.1); RDW-SD 43.4 fL; WBC 4.68 10^3/uL (4.4-10.8)
[2024-03-24 13:42] LABS: ALT 22 U/L (16-63); AST 16 U/L (15-37); Albumin 3.6 g/dL (3.4-5.0); Alkaline Phosphatase 79 U/L (46-116); Anion Gap 6.6 mmol/L (3-11); BUN 16 mg/dL (7-18); CO2 29.4 mmol/L (21.0-32.0); CREATININE 0.9 mg/dL (0.70-1.30); Calcium 8.7 mg/dL (8.5-10.1); Chloride 105 mmol/L (98-107); Estimated GFR 89.07 (mL/min/1.73m2); Glucose 79 mg/dL (74-106); Potassium 4.4 mmol/L (3.5-5.1); Sodium 141 mmol/L (136-145); TSH (W/Ref FT4) 2.48 uIU/mL (0.36-3.74); Total Protein 6.1 g/dL (6.4-8.2)
[2024-03-25 18:25] LABS: PSA, Ultrasensitive <0.01 ng/mL (<= 6.5)
[2024-03-29 16:10] LABS: Testosterone, Total <7.0 ng/dL (240-950)
== END 2024-03-24 15:47 | disposition home or self-care (01) ==
LOC: LBO 15:48
PROVIDERS: PCP Nurse Practitioner Family; Visit Provider Internal Medicine
DX: C61 Malignant neoplasm of prostate (principal)
CPT/HCPCS: 36415; 80053; 84153; 84403; 84443; 85025

== ENCOUNTER 2024-06-22 12:53 | Outpatient (CLI) | payer MEDICARE, SELFPAY ==
[2024-06-22 12:57] LABS: Abs Immature Grans 0.05 10^3/uL (0.0-0.06); Absolute Basophil Count 0.05 10^3/uL (0.0-0.2); Absolute Eosinophil Count 0.32 10^3/uL (0.0-0.7); Absolute Lymphocyte Count 0.36 10^3/uL (1.2-3.4); Absolute Monocyte Count 0.46 10^3/uL (0.1-0.8); Absolute Neutrophil Count 4.51 10^3/uL (1.2-6.7); Basophils % 0.9 %; Eosinophils % 5.6 %; HCT 39.8 % (40.0-50.0); HGB 13.4 g/dL (13.5-17.5); Immature Grans % 0.9 %; Lymphocytes % 6.3 %; MCH 32.1 pg (27.0-33.0); MCHC 33.7 % (32.0-36.0); MCV 95 fL (80-95); MPV 9.5 fL (8.0-11.0); Neutrophils % 78.3 %; Platelet Count 269 10^3/uL (130-400); RBC 4.17 10^6/uL (4.36-5.78); RDW 12.8 % (11.8-14.1); WBC 5.75 10^3/uL (4.4-10.8)
[2024-06-22 14:18] LABS: ALT 17 U/L (16-63); AST 14 U/L (15-37); Albumin 3.5 g/dL (3.4-5.0); Alkaline Phosphatase 81 U/L (46-116); Anion Gap 4.7 mmol/L (3-11); BUN 17 mg/dL (7-18); Bilirubin, Total 0.25 mg/dL (0.2-1.0); CO2 30.3 mmol/L (21.0-32.0); CREATININE 1.1 mg/dL (0.70-1.30); Calcium 9.1 mg/dL (8.5-10.1); Chloride 109 mmol/L (98-107); Estimated GFR 70.01 (mL/min/1.73m2); Glucose 80 mg/dL (74-106); Potassium 4.7 mmol/L (3.5-5.1); Sodium 144 mmol/L (136-145); TSH (W/Ref FT4) 3.16 uIU/mL (0.36-3.74)
[2024-06-24 13:20] LABS: PSA, Ultrasensitive <0.01 ng/mL (<= 6.5)
[2024-06-26 10:03] LABS: Testosterone, Total 8.5 ng/dL (240-950)
== END 2024-06-22 12:54 | disposition home or self-care (01) ==
LOC: LBO 12:54
PROVIDERS: PCP Nurse Practitioner Family; Visit Provider Nurse Practitioner
DX: Z08 Encounter for follow-up examination after completed treatment for malignant neoplasm (principal); C61 Malignant neoplasm of prostate
CPT/HCPCS: 36415; 80053; 84153; 84403; 84443; 85025

== ENCOUNTER 2024-09-30 08:27 | Outpatient (CLI) | payer MEDICARE, SELFPAY ==
[2024-09-30 10:40] LABS: Abs Immature Grans 0.03 10^3/uL (0.0-0.06); Absolute Basophil Count 0.05 10^3/uL (0.0-0.2); Absolute Eosinophil Count 0.34 10^3/uL (0.0-0.7); Absolute Lymphocyte Count 0.38 10^3/uL (1.2-3.4); Absolute Monocyte Count 0.35 10^3/uL (0.1-0.8); Absolute Neutrophil Count 3.98 10^3/uL (1.2-6.7); Eosinophils % 6.6 %; HCT 47.8 % (40.0-50.0); HGB 15.8 g/dL (13.5-17.5); Immature Grans % 0.6 %; Lymphocytes % 7.4 %; MCH 31.9 pg (27.0-33.0); MCHC 33.1 % (32.0-36.0); MCV 96 fL (80-95); MPV 10.1 fL (8.0-11.0); Monocytes % 6.8 %; Neutrophils % 77.6 %; Platelet Count 233 10^3/uL (130-400); RBC 4.96 10^6/uL (4.36-5.78); RDW 12.4 % (11.8-14.1); RDW-SD 44.2 fL; WBC 5.13 10^3/uL (4.4-10.8)
[2024-09-30 11:04] LABS: ALT 17 U/L (16-63); AST 18 U/L (15-37); Alkaline Phosphatase 81 U/L (46-116); Anion Gap 3.8 mmol/L (3-11); BUN 15 mg/dL (7-18); CO2 33.2 mmol/L (21.0-32.0); CREATININE 1.2 mg/dL (0.70-1.30); Calcium 9.3 mg/dL (8.5-10.1); Chloride 105 mmol/L (98-107); Estimated GFR 62.67 (mL/min/1.73m2); Glucose 114 mg/dL (74-106); Potassium 4.3 mmol/L (3.5-5.1); Sodium 142 mmol/L (136-145); TSH (W/Ref FT4) 2.67 uIU/mL (0.36-3.74)
[2024-10-02 20:43] LABS: PSA, Ultrasensitive <0.01 ng/mL (<= 6.5)
[2024-10-04 15:36] LABS: Testosterone, Total 7.9 ng/dL (240-950)
== END 2024-09-30 08:28 | disposition home or self-care (01) ==
LOC: LBO 08:27
PROVIDERS: PCP Nurse Practitioner Family; Visit Provider Nurse Practitioner
DX: Z08 Encounter for follow-up examination after completed treatment for malignant neoplasm (principal); C61 Malignant neoplasm of prostate
CPT/HCPCS: 36415; 80053; 84153; 84403; 84443; 85025

== ENCOUNTER → 2024-10-09 14:21 | Outpatient (BNVA) | payer MEDICARE, SELFPAY | PROVIDERS: PCP Nurse Practitioner Family; Visit Provider Urology | DX: C61 Malignant neoplasm of prostate (principal); N40.1 Benign prostatic hyperplasia with lower urinary tract symptoms; R35.1 Nocturia | CPT/HCPCS: 99213 ==

== ENCOUNTER 2024-12-23 11:21 | Outpatient (CLI) | payer MEDICARE, SELFPAY ==
[2024-12-23 11:45] LABS: Abs Immature Grans 0.06 10^3/uL (0.0-0.06); Absolute Basophil Count 0.06 10^3/uL (0.0-0.2); Absolute Eosinophil Count 0.29 10^3/uL (0.0-0.7); Absolute Lymphocyte Count 0.48 10^3/uL (1.2-3.4); Absolute Monocyte Count 0.51 10^3/uL (0.1-0.8); Absolute Neutrophil Count 4.25 10^3/uL (1.2-6.7); Basophils % 1.1 %; Eosinophils % 5.1 %; HCT 42.6 % (40.0-50.0); HGB 14.4 g/dL (13.5-17.5); Immature Grans % 1.1 %; Lymphocytes % 8.5 %; MCH 31.9 pg (27.0-33.0); MCHC 33.8 % (32.0-36.0); MCV 94 fL (80-95); MPV 10.3 fL (8.0-11.0); Neutrophils % 75.2 %; Platelet Count 253 10^3/uL (130-400); RBC 4.52 10^6/uL (4.36-5.78); RDW 13.5 % (11.8-14.1); RDW-SD 46.8 fL; WBC 5.65 10^3/uL (4.4-10.8)
[2024-12-23 11:54] LABS: Hemoglobin A1C 5.2 % (<5.7)
[2024-12-23 12:03] LABS: ALT 19 U/L (16-63); AST 19 U/L (15-37); Albumin 3.6 g/dL (3.4-5.0); Alkaline Phosphatase 72 U/L (46-116); Anion Gap 4.6 mmol/L (3-11); BUN 21 mg/dL (7-18); Bilirubin, Total 0.3 mg/dL (0.2-1.0); CO2 29.4 mmol/L (21.0-32.0); Chloride 105 mmol/L (98-107); Glucose 85 mg/dL (74-106); Potassium 4.4 mmol/L (3.5-5.1); Sodium 139 mmol/L (136-145); Total Protein 6.4 g/dL (6.4-8.2)
[2024-12-23 12:28] LABS: Calculated LDL 92 mg/dL (<100); Cholesterol 168 mg/dL (<200); HDL Cholesterol 62 mg/dL (>or=40); Triglyceride 72 mg/dL (<150)
[2024-12-25 11:50] LABS: PSA, Ultrasensitive <0.01 ng/mL (<= 6.5)
[2024-12-28 17:44] LABS: Testosterone, Total 12 ng/dL (240-950)
== END 2024-12-23 11:22 | disposition home or self-care (01) ==
LOC: LBO 11:22
PROVIDERS: PCP Nurse Practitioner Family; Visit Provider Nurse Practitioner
DX: Z08 Encounter for follow-up examination after completed treatment for malignant neoplasm (principal); C61 Malignant neoplasm of prostate; R73.9 Hyperglycemia, unspecified; E78.5 Hyperlipidemia, unspecified
CPT/HCPCS: 36415; 80053; 80061; 84153; 84403; 83036; 84443; 85025

== ENCOUNTER 2025-01-12 10:41 | Outpatient (CLI) | payer MEDICARE, SELFPAY ==
[2025-01-15 15:49] LABS: Apolipoprotein B, Serum 78 mg/dL; Beta VLDL Cholesterol Not Detected mg/dL (<15); Beta VLDL Triglycerides Not Detected mg/dL (<15); Cholesterol, Total, CDC 163 mg/dL; Chylomicron Cholesterol Not Detected; Chylomicron Triglycerides Not Detected; HDL Cholesterol, CDC 50 mg/dL (>=40); LDL Cholesterol 72 mg/dL; LDL Triglycerides 32 mg/dL (<=50); Lp(a) Cholesterol 26 mg/dL (<5); LpX Not detected; Triglycerides, CDC 79 mg/dL; VLDL Cholesterol 15 mg/dL (<30); VLDL Triglycerides 32 mg/dL (<120)
== END 2025-01-12 10:42 | disposition home or self-care (01) ==
LOC: LBO 10:41
PROVIDERS: PCP Nurse Practitioner Family; Visit Provider Nurse Practitioner Family
DX: E78.01 Familial hypercholesterolemia (principal); Z51.81 Encounter for therapeutic drug level monitoring
CPT/HCPCS: 36415; 80061; 82172; 82664

== ENCOUNTER 2025-03-30 13:09 | Outpatient (CLI) | payer MEDICARE, SELFPAY ==
[2025-03-30 10:58] LABS: Abs Immature Grans 0.03 10^3/uL (0.0-0.06); HCT 40.7 % (40.0-50.0); HGB 13.5 g/dL (13.5-17.5); Immature Grans % 0.6 %; MCH 31.5 pg (27.0-33.0); MCHC 33.2 % (32.0-36.0); MCV 95 fL (80-95); MPV 10.0 fL (8.0-11.0); Platelet Count 230 10^3/uL (130-400); RBC 4.28 10^6/uL (4.36-5.78); RDW 12.9 % (11.8-14.1); RDW-SD 45.1 fL; WBC 4.80 10^3/uL (4.4-10.8)
[2025-03-30 12:19] LABS: ALT 22 U/L (16-63); AST 17 U/L (15-37); Albumin 3.6 g/dL (3.4-5.0); Alkaline Phosphatase 75 U/L (46-116); Anion Gap 3.4 mmol/L (3-11); BUN 21 mg/dL (7-18); Bilirubin, Total 0.3 mg/dL (0.2-1.0); CO2 30.6 mmol/L (21.0-32.0); Calcium 9.0 mg/dL (8.5-10.1); Chloride 105 mmol/L (98-107); Estimated GFR 69.57 (mL/min/1.73m2); Glucose 89 mg/dL (74-106); Potassium 4.4 mmol/L (3.5-5.1); Sodium 139 mmol/L (136-145); TSH (W/Ref FT4) 1.79 uIU/mL (0.36-3.74); Total Protein 6.1 g/dL (6.4-8.2)
[2025-03-31 11:28] LABS: PSA (Ultrasensitive) <0.01 ng/mL
[2025-03-31 11:29] LABS: PSA, Free <0.1 ng/mL
== END 2025-03-30 13:10 | disposition home or self-care (01) ==
LOC: LBO 13:09
PROVIDERS: PCP Nurse Practitioner Family; Visit Provider Nurse Practitioner
DX: Z79.899 Other long term (current) drug therapy (principal)
CPT/HCPCS: 36415; 80053; 84403; 84443; 85025